=== PATIENT | male | born 1980 | race Caucasian/White ===

== ENCOUNTER 2022-09-30 00:52 | Emergency (ER) | payer BC ==
[2022-09-30] MEDS ORDERED: Ondansetron PF 4 MG/2 ML Vial ONE ×2 (01:34→10:25)
[2022-09-30] MEDS ORDERED: Piperacillin/Tazobactam 4.5 GM VIAL ONE (01:35)
[2022-09-30] MEDS ORDERED: HYDROmorphone 0.5 MG/0.5 ML SYRINGE ONE ×4 (01:35→10:41)
[2022-09-30 01:53] LABS: #Basophils 0.1 10x3/uL (0.0-0.2); #Eosinphils 0.1 10x3/uL (0.0-0.5); #Monocytes 0.7 10x3/uL (0.0-1.1); #Neutrophils 10.8 10x3/uL (1.5-8.4); %Basophils 0.4 % (0.0-2.0); %Eosinophils 0.7 % (0.0-6.0); %Lymphocytes 9.2 % (18.0-47.0); %Monocytes 5.2 % (0.0-10.0); %Neutrophils 84.1 % (40.0-75.0); Hemoglobin 14.4 g/dL (13.5-17.5); Mean Corpuscular Hemoglobin 29.3 pg (27.0-33.0); Mean Corpuscular Volume 83.7 fl (81.2-95.1); Mean Platelet Volume 8.6 fl (7.4-10.4); Platelet Count 260 10x3/uL (150-450); RBC Distribution Width 12.8 % (11.5-14.5); Red Blood Cell (RBC) Count 4.92 10x6/uL (4.32-5.72); White Blood Cell (WBC) Count 12.8 10x3/uL (3.5-10.5)
[2022-09-30 01:58] LABS: ALT (SGPT) 26 U/L (8-55); AST (SGOT) 22 U/L (5-34); Albumin 4.5 g/dL (3.5-5.0); Alkaline Phosphatase 77 U/L (40-110); Anion Gap 16 mmol/L (10-20); BUN (Urea Nitrogen) 19 mg/dL (8.9-20.6); Bilirubin, Total 0.8 mg/dL (0.2-1.2); Calc. Creatinine Clearance 0 mL/min (70-130); Calcium 9.9 mg/dL (7.8-10.44); Carbon Dioxide 23 mmol/L (22-29); Chloride 105 mmol/L (98-107); Estimated GFR 69; Glucose 156 mg/dL (70-105); Protein, Total 7.5 g/dL (6.0-8.3); Sodium 140 mmol/L (136-145)
[2022-09-30] MEDS ORDERED: metroNIDAZOLE 500 MG/100 ML BAG ONE (03:22)
[2022-09-30] MEDS ORDERED: cefTRIAXone\\ROCEPHIN 1 GM VIAL ONE (03:23)
[2022-09-30 03:34] LABS: SARS-CoV-2 NAA Rapid Test Not Detected (NotDetected)
[2022-09-30 03:38] LABS: INR-International Normal Ratio 0.9; Prothrombin Time 10.3 sec (9.5-12.1)
[2022-09-30 05:09] LABS: Bilirubin Neg (Negative); Blood, Urine Negative (Negative); Clarity Clear (Clear); Glucose, Urine (Dipstick) Normal (Negative); Ketone, Urine 5 mg/dL (Negative); Leukocyte Negative (Negative); Nitrite Negative (Negative); Protein, Urine (Dipstick) 15 mg/dl (Neg-Trace); Specific Gravity, Urine 1.015 (1.005-1.030); Urobilinogen Normal mg/dL (Less than 2)
[2022-09-30] MEDS ORDERED: Bupivacaine 0.25% HCL 30 ML VIAL ONE (10:22)
[2022-09-30] MEDS ORDERED: EPINEPHrine 1 MG/ML AMP ONE (10:22)
[2022-09-30] MEDS ORDERED: Rocuronium Bromide 10 MG/ML (10ML VIAL) ONE (10:25)
[2022-09-30] MEDS ORDERED: PROPOFOL 20 ML ONE (10:25)
[2022-09-30] MEDS ORDERED: Lidocaine 1% PF 5 ML VIAL ONE (10:25)
[2022-09-30] MEDS ORDERED: Fentanyl 100 MCG/2 ML VIAL ONE (10:25)
[2022-09-30] MEDS ORDERED: Succinylcholine 200 MG/10 ml SYRINGE FS ONE (10:25)
[2022-09-30] MEDS ORDERED: Dexamethasone 20 MG/5 ML VIAL ONE (10:26)
[2022-09-30] MEDS ORDERED: ceFOXitin 1 GM VIAL ONE (10:37)
[2022-09-30] MEDS ORDERED: Famotidine/PF 20 mg/2ml Vial ONE (10:41)
[2022-09-30] MEDS ORDERED: Glycopyrrolate 0.2 MG/ML 5 ML SYRINGE ONE (11:53)
[2022-09-30] MEDS ORDERED: Phenylephrine 10 MG/ML VIAL ONE (11:55)
[2022-09-30] MEDS ORDERED: Meperidine HCl/PF 25 MG/ML VIAL ONE (12:14)
[2022-09-30] MEDS ORDERED: Iopamidol 300 61% 100 ML VIAL FS ONE (12:41)
== END 2022-09-30 16:00 | disposition home or self-care (01) ==
LOC: CSHERS 00:52
PROC: 0DTJ4ZZ Resection of Appendix, Percutaneous Endoscopic Approach (ICD-10-PCS; principal; 2022-09-30)
DX: K35.890 Other acute appendicitis without perforation or gangrene (principal); Z20.822 Contact with and (suspected) exposure to COVID-19
CPT/HCPCS: 74177; 80053; 81003; 85025; 85610; 88304; 93005; 96361; 96365; 96375; 96376; A4649; J0171; J0694; J0696; J1100; J1170; J2175; J2370; J2405; J2543; J2704; J3010; Q9967; S0020; S0028; U0002